=== PATIENT | male | born 1965 | race Caucasian/White ===

== ENCOUNTER 2020-07-31 14:33 | Emergency (ER) | payer OTHER ==
[~2020-07-31 14:33] MED LIST: ALLERGY MEDICAT25 MG PO; ANDROGEL2.5 G1 TD; BUSPAR 5MG TABLE5 MG PO; CIPRO500 MG PO; EFFEXOR XR37.5 MG PO; ESOMEPRAZOLE MA40 MG PO; FLAGYL500 MG PO; KEFLEX CAP 500500 MG PO; LISINOPRIL20 MG PO; LOMOTIL 2.5-0.1 EACH PO; LOMOTIL PO; LOPRESSOR50 MG PO; NEURONTIN 300300 MG PO; PHENERGAN 12.12.5 M1 PO; PROTONIX40 MG PO; SEROQUEL100 MG PO; ZANAFLEX4 MG PO
[2020-07-31] MEDS ORDERED: Voltaren Gel 1% TOP (16:34)
[2020-07-31] MEDS ORDERED: MEDROL DOSEPAK 24 MG PO (16:34)
[2020-07-31] MEDS ORDERED: NORFLEX 100 MG100 MG PO (16:34)
== END 2020-07-31 16:30 | disposition home or self-care (01) ==
LOC: ER1 14:33
DX: S30.0XXA Contusion of lower back and pelvis, initial encounter (principal); F17.210 Nicotine dependence, cigarettes, uncomplicated; Z88.1 Allergy status to other antibiotic agents; Z88.8 Allergy status to other drugs, medicaments and biological substances; W01.0XXA Fall on same level from slipping, tripping and stumbling without subsequent striking against object, initial encounter
CPT/HCPCS: 72100; 73502; 99283

== ENCOUNTER 2020-10-18 20:35 | Emergency (ER) | payer OTHER ==
[~2020-10-18 20:35] MED LIST changes: +MEDROL DOSEPAK 24 MG PO; +NORFLEX 100 MG100 MG PO; +Voltaren Gel 1% TOP
[2020-10-18 23:09] LABS: HEMOGLOBIN 14.8 gm/dl (14.0-17.5); RED BLOOD COUNT 4.42 M/UL (4.20-5.50); WHITE BLOOD COUNT 5.8 K/UL (4.5-11.0)
[2020-10-18 23:36] LABS: BUN/CREATININE RATIO 8 (0-10)
== END 2020-10-19 00:38 | disposition home or self-care (01) ==
LOC: ER1 20:35
PROVIDERS: Student in an Organized Health Care Education/Training Program
DX: R10.9 Unspecified abdominal pain (principal); R30.0 Dysuria; F17.210 Nicotine dependence, cigarettes, uncomplicated; Z90.89 Acquired absence of other organs
CPT/HCPCS: 80053; 81001; 82550; 82553; 83605; 83690; 83874; 84484; 85025; 93005; 96374; 96375; 99284; J2270; J2405